=== PATIENT | female | born 1975 | race Caucasian/White ===

== ENCOUNTER 2020-08-20 16:31 | Inpatient (IN) | payer MEDICAID ==
[~2020-08-20] VITALS: Ht 160 cm; Wt 91.8 kg
[2020-08-20 17:01] VITALS: Ht 160 cm; Wt 91.8 kg
--- NOTE | 2020-08-20 17:12 | NUR ---
PT SITTING UP ON EDGE OF BED, AAOX4 WITH C/O 8/10 PRESSURE LIKE HATFIELD PAIN TO LT SIDE OF HEAD WITH LT SIDE WEAKNESS X 2 WEEKS. PT DENIES ANY TRAUMA/INJURIES AT THIS TIME. PT DENIES ANY N/V/D/C, RESP ILLNESS, FEVER OR URINARY PROBLEMS AT THIS TIME. TERE RAMIREZ AT BEDSIDE.
[2020-08-20 17:44] LABS: BASOPHIL % 0.9 % (0.2-1.3)
--- NOTE | 2020-08-20 17:45 | NUR ---
LAB AT BEDSIDE.
[2020-08-20 17:48] LABS: PLATELET COUNT 431 x10^3mcL (179-408); RED CELL DISTRIBUTION WIDTH 15.5 % (12.3-17.7)
--- NOTE | 2020-08-20 17:56 | NUR ---
PT OFF OF UNIT TO RADIOLOGY.
[2020-08-20 18:06] LABS: CALCIUM 8.9 mg/dL (8.5-10.1); CARBON DIOXIDE 26.5 mmol/L (21-32); CHLORIDE SERUM 100 mmol/L (98-107); CREATININE SERUM 0.7 mg/dL (0.6-1.0); GFR1 > 60 mL/min; GLUCOSE SERUM 113 mg/dL (74-106); POTASSIUM SERUM 3.7 mmol/L (3.5-5.1); SODIUM SERUM 134 mmol/L (136-145)
[2020-08-20 18:11] LABS: ALBUMIN 3.5 g/dL (3.4-5.0); ALKALINE PHOSPHATASE 125 U/L (46-116); ALT/SGPT 98 U/L (14-59); AST/SGOT 47 U/L (15-37); BILIRUBIN TOTAL 0.1 mg/dL (0.20-1.00); TOTAL PROTEIN, SERUM 7.9 g/dL (6.4-8.2)
--- NOTE | 2020-08-20 18:12 | NUR ---
PT RESTING IN BED WITH NO SIGNS OF DISTRESS.
--- NOTE | 2020-08-20 18:59 | NUR ---
MED IM PER ORDER FOR HEADACHE 01/27.
--- NOTE | 2020-08-20 19:32 | NUR ---
PT STATES HER L ARM PAIN IS 3/10 ACHING PAIN AT THIS TIME. PT IS A&OX4, RESPS E/U, LUNGS CTA, NSR NOTED ON MONITOR. NO ACUTE DISTRESS NOTED AT THIS TIME. WILL CONT TO MONITOR.
--- NOTE | 2020-08-20 20:53 | NUR ---
REPORT RECEIVED FROM MARIO KAHN TO ASSUME CARE OF PT.
--- NOTE | 2020-08-20 21:14 | NUR ---
TELE NEURO CONSULT COMPLETED AT BEDSIDE. -FACIAL DROOP. + FOR L ARM AND L LEG DROOP. PT'S COORDINATION IS UNCOMPROMISED. PT IS SPEAKING IN FULL CLEAR SENTENCES, RESP E/U, NAD NOTED, PT IS ON METER MAINTENANCE PERSON WITH NSR.
--- NOTE | 2020-08-20 22:44 | NUR ---
PT IS RESTING IN GURNEY, RESP E/U, NAD NOTED, PT REMAINS ON STITCHER OPERATOR WITH NSR AND PULSE OX, CALL LIGHT IS WITHIN REACH. PT DENIES ANY PAIN AT THIS TIME.
--- NOTE | 2020-08-20 23:44 | NUR ---
PT IS RESTING IN GURNEY, RESP E/U, NAD NOTED, NSR ON PR MANAGER, PT APPEARS COMFORTABLE, CALL LIGHT IS WITHIN REACH.
[2020-08-21 00:57] LABS: CHOLESTEROL/HDL RATIO 4.3
[2020-08-21 01:03] LABS: UA SPECIFIC GRAVITY <=1.005 (1.005-1.035); microscopic required? YES; urine erythrocyte TRACE (NEGATIVE)
[2020-08-21 01:44] LABS: AMPHETAMINE QUAL UR NONE DETECTED (See below)
--- NOTE | 2020-08-21 01:55 | NUR ---
REPORT GIVEN TO MATTI KAHN TO ASSUME CARE OF PT.
--- NOTE | 2020-08-21 02:20 | NUR ---
RECEIVED PT FROM ED VIA NADIA ACCOMPANIED BY RN. AA&O X4. SPEECH CLEAR. ABLE TO MAKE NEEDS KNOWN AND FOLLOWS COMMAND. BREATHING EVEN AND UNLABORED. NO SOB ON ROOM AIR. NO C/O CHEST PAIN/PRESSURE. PT CAME IN ED WITH LEFT SIDED HEADACHE. DENIES HEADACHE AT THIS TIME. NO FACIAL DROOP. REPORTS WEAKNESS, NUMBNESS AND PAIN TO LUE AND LLE. NO ARM DRIFTING. EQUAL MANAGER DISASTER RECOVERY STRENGTH SHARA. ABD SOFT/ROUND. C/O N/V/ABD PAIN. VOIDS FREELY. DENIES DYSURIA. SKIN INTACT. SAFETY MEASURES IN PLACE. BED IN LOWEST POSITION. SIDE RAILS UP X2. DEMONSTRATED HOW TO USE THE CALL LIGHT. CALL LIGHT WITHIN REACH.
--- NOTE | 2020-08-21 03:00 | NUR ---
PT RESTING COMFORTABLY. DENIES PAIN AT THIS TIME. CALL LIGHT WITHIN REACH.
[2020-08-21 03:14] VITALS: BP 96/73
[2020-08-21 05:26] VITALS: BP 91/52
[2020-08-21 06:37] LABS: CALCIUM 8.1 mg/dL (8.5-10.1); CARBON DIOXIDE 24.4 mmol/L (21-32); CHLORIDE SERUM 108 mmol/L (98-107); CREATININE SERUM 0.7 mg/dL (0.6-1.0); GFR1 > 60 mL/min; GLUCOSE SERUM 88 mg/dL (74-106); PHOSPHOROUS 3.6 mg/dL (2.5-4.9); POTASSIUM SERUM 3.8 mmol/L (3.5-5.1); SODIUM SERUM 141 mmol/L (136-145)
[2020-08-21 06:51] LABS: BASOPHIL % 1.1 % (0.2-1.3); PLATELET COUNT 326 x10^3mcL (179-408)
--- NOTE | 2020-08-21 07:00 | NUR ---
PT RESTING WITH EYES CLOSED. NO FACIAL GRIMACING. NO SOB ON ROOM AIR. NO DISTRESS NOTED. IV SALINE LOCKED TO RAC, PATENT AND INTACT. SAFETY MEASURES MAINTAINED. BED IN LOWEST POSITION. SIDE RAILS UP X2. CALL LIGHT WITHIN REACH. WILL ENDORSE CONTINUITY OF CARE TO DAY SHIFT RN.
[2020-08-21 07:09] LABS: RED CELL DISTRIBUTION WIDTH 15.2 % (12.3-17.7)
--- NOTE | 2020-08-21 07:55 | NUR ---
RECEIVED PT FROM WAX PATTERN REPAIRER NURSE. ASSESSED AND WILL DOCUMENT. DENIES ANY PAIN. NUMBNESS TO LLE AND MD KIRK AWARE. SAFTEY PRECAUTIONS ARE IN PLACE. WILL MONITOR.
[2020-08-21 08:28] VITALS: BP 98/52
--- NOTE | 2020-08-21 10:30 | NUR ---
AND RESIDENTS DID ROUNDS, AWARE ABOUT PT STILL HAS NUMBNESS. TOLD PT ALL THE TEST IS NEGATIVE, SHE CAN GO HOME. CHARGE NURSE AWARE.
[2020-08-21 11:32] VITALS: BP 104/50
[2020-08-21] MEDS ORDERED: FLE10 PO (11:55)
[2020-08-21] MEDS ORDERED: IMITREX50 MG PO (11:57)
[2020-08-21] MEDS ORDERED: IBU400 M2 PO (11:58)
--- NOTE | 2020-08-21 13:00 | NUR ---
PT IS STABLE, EATING WELL. DENIES ANY PAIN. PT SAID HER NUMBNESS LLE AND LUE IS GETTING BETTER. INFORMED PT SHE IS DISCHARGED. SHE SAID SHE WILL CALL FOR RIDE.
[2020-08-21 13:35] VITALS: BP 104/50
--- NOTE | 2020-08-21 14:14 | NUR ---
Discount pharmacy card and list to low cost medical clinics given to patient.
[2020-08-21 16:23] VITALS: BP 104/59
--- NOTE | 2020-08-21 17:45 | NUR ---
DC INSTRUCTIONS GIVEN. PB SIGNED AND SENT WITH PT. IV REMOVED AND DRESSING APPLIED. TELE REMOVED AND RETURNED. PT SAID SHE DOESNOT FEEL ANY NUMBNESS TO LEFT SIDE ANYMORE, NO MORE HATFIELD. FAMILY HERE TO BUSINESS OPERATIONS CONSULTANT PT. MINERAL INDUSTRY TEACHER WHEELED PT DOWN TO LOBBY. NO DISTRESS NOTED. DC HOME.
== END 2020-08-21 18:03 | disposition home or self-care (01) | DRG 54 ==
LOC: ED 16:31 → MU 23:20 → DU 23:20 → MU 08-21 01:55 → DU 08-21 05:43
PROVIDERS: Emergency Medicine; ADMIT Internal Medicine; ATTEND Internal Medicine
DX: G43.809 Other migraine, not intractable, without status migrainosus (principal); G45.9 Transient cerebral ischemic attack, unspecified; E78.5 Hyperlipidemia, unspecified; D64.9 Anemia, unspecified; Z20.822 Contact with and (suspected) exposure to COVID-19; D64.89 Other specified anemias; Z98.891 History of uterine scar from previous surgery; Z79.899 Other long term (current) drug therapy; Z79.891 Long term (current) use of opiate analgesic; Z79.01 Long term (current) use of anticoagulants
CPT/HCPCS: 83880; G0378; J1200; J1885; J2765; J7030; Q9967